=== PATIENT | male | born 1980 | race Caucasian/White ===

== ENCOUNTER 2019-09-16 14:15 | Emergency (ER) | payer MEDICAID ==
[~2019-09-16] VITALS: Ht 182.9 cm; Wt 138.2 kg
[2019-09-16] MEDS ORDERED: LIPI10TA PO (14:26)
[2019-09-16 14:58] LABS: BASO # 0.1 10^3/uL (0.0-0.2); BASO % 0.5 % (0.0-1.0); EOS # 0.3 10^3/uL (0.0-0.5); EOS % 1.8 % (0.0-3.0); HEMATOCRIT 49.6 % (42.0-52.0); HEMOGLOBIN 17.1 g/dl (13.5-17.5); LYMPH # 3.7 10^3/uL (1.5-5.0); LYMPH % 26.7 % (24.0-44.0); MEAN CORPUSCULAR HEMOGLOBIN 29.7 pg (27.0-33.0); MEAN CORPUSCULAR HGB CONC 34.5 g/dl (32.0-36.5); MEAN CORPUSCULAR VOLUME 86.3 fl (80.0-96.0); MONO # 1.1 10^3/uL (0.0-0.8); MONO % 7.7 % (0.0-5.0); NEUTROPHILS # 8.8 10^3/uL (1.5-8.5); NEUTROPHILS % 62.7 % (36.0-66.0); PLATELET COUNT, AUTOMATED 208 10^3/uL (150-450); RED BLOOD COUNT 5.75 10^6/uL (4.30-6.10)
[2019-09-16 15:32] LABS: BLOOD UREA NITROGEN 11 MG/DL (7-18); CALCIUM LEVEL 8.7 MG/DL (8.5-10.1); CARBON DIOXIDE LEVEL 27 MEQ/L (21-32); CHLORIDE LEVEL 102 MEQ/L (98-107); CK-MB VALUE MASS 2.1 NG/ML (<3.6); CPK CREATINE PHOSPHOKINASE 172 U/L (39-308); CREATININE FOR GFR 1.04 MG/DL (0.70-1.30); FREE T4 0.98 NG/DL (0.76-1.46); GLOMERULAR FILTRATION RATE > 60.0 (>60); GLUCOSE, FASTING 78 MG/DL (70-100); MB/CK RELATIVE INDEX 1.22 (< OR =4); POTASSIUM SERUM 4.2 MEQ/L (3.5-5.1); SODIUM LEVEL 137 MEQ/L (136-145); TROPONIN I < 0.02 NG/ML (< 0.10)
--- NOTE | 2019-09-16 15:37 | REP ---
Single view chest: 09/16/2019. Indication: Chest pain. Comparison: None. Findings: The lungs are clear. There is no pleural effusion or pneumothorax. The cardiac silhouette is unremarkable. Impression: No acute cardiopulmonary process. Electronically Signed by Frank Jennings DO 09/16/2019 03:29 P
[2019-09-16] MEDS ORDERED: ISOVUE-370 76% 100ML VIAL (Q9967) As Ordered ONE (16:29)
[2019-09-16 17:42] VITALS: BP 114/62
--- NOTE | 2019-09-16 18:24 | REP ---
CT pulmonary angiogram: With IV contrast. History: Chest pain. Shortness of breath. Rule out pulmonary embolus. Comparison studies: Comparison is made with today's chest x-ray Contrast dose: 75 ML of Isovue [address] technique: Helical scanning is acquired and overlapping 1.5 mm and contiguous 3 mm axial images are reformatted. In addition, maximum intensity projection and multiplanar re-formation images are generated in sagittal and coronal imaging projections. CT pulmonary angiographic findings: There is good opacification of the pulmonary arterial tree. There is no CT evidence of pulmonary embolus. No vessel cutoff or filling defect is seen on maximal intensity projection images. The thoracic aorta is normal in contour and course and homogeneous in contrast enhancement. No aneurysm or dissection is seen. Granulomatous calcifications are seen scattered about the spleen as well as in subcarinal and right hilar lymph node residuals. There are granulomatous calcifications in the right lower lobe of the lung. Some of these granulomatous calcifications in the right lower lobe appear to be within a dilated central bronchus. Question broncholith. There is volume loss and subsegmental atelectasis in the superior segment of the right lower lobe related to this. No pulmonary mass or significant pulmonary nodule is appreciated. No bony destructive lesion is appreciated. No adrenal lesion is seen. Visualized upper abdominal structures are otherwise unremarkable. Impression: No CT evidence of pulmonary embolus or aortic disease. There are granulomatous calcific residuals in the right lower lobe of the lung as well as in the right hilar and a right subcarinal lymph node residuals. There are two or three granulomatous calcifications which appear to reside within a dilated central bronchi. These may reflect broncholith. There is some volume loss in the superior segment of the right lower lobe at this level. Electronically Signed by Davion Foster MD 09/17/2019 08:23 A
--- NOTE | 2019-09-16 18:45 | ECGEPIP ---
[facility] - ED Test Date: 2019-09-16 Pat Name: MARIA A ROTH Department: Room: - Gender: Male Regional Engagement Consultant: RAISA : 1980 Requested By: BLAYNE Ray Order Number: [id number] Reading MD: Sana Valencia Measurements Intervals [place] Rate: 90 P: 29 FL: 162 QRS: -7 QRSD: 89 T: 12 QT: 361 QTc: 444 Interpretive Statements SINUS RHYTHM VOLTAGE CRITERIA FOR LVH NO PRIOR Electronically Signed on 09-16-2019 18:45:13 EST by Sana Valencia
== END 2019-09-16 17:51 | disposition home or self-care (01) ==
LOC: M ED 14:15
DX: R07.9 Chest pain, unspecified (principal); Z88.0 Allergy status to penicillin; Z88.6 Allergy status to analgesic agent
CPT/HCPCS: 71045; 71275; 80048; 82550; 82553; 84439; 84443; 85025; 93005; 93041; 94760; 99284; Q9967

== ENCOUNTER → 2019-09-17 | Outpatient (REF) | payer MEDICAID ==
[~2019-09-17] MED LIST: LIPI10TA PO
[2019-09-17 12:57] LABS: ALBUMIN 3.8 GM/DL (3.2-5.2); ALT/SGPT 46 U/L (12-78); BILIRUBIN,TOTAL 0.7 MG/DL (0.2-1.0); BLOOD UREA NITROGEN 16 MG/DL (7-18); CARBON DIOXIDE LEVEL 27 MEQ/L (21-32); CHLORIDE LEVEL 106 MEQ/L (98-107); CHOLESTEROL LEVEL 172 MG/DL (<200); CHOLESTEROL RISK RATIO 5.931 (<5); CREATININE FOR GFR 0.96 MG/DL (0.70-1.30); GLOMERULAR FILTRATION RATE > 60.0 (>60); GLUCOSE, FASTING 113 MG/DL (70-100); HDL CHOLESTEROL 29 MG/DL (>40); LDL CHOLESTEROL 108 MG/DL (<100); NON-HDL-C 143 MG/DL; POTASSIUM SERUM 4.3 MEQ/L (3.5-5.1); SODIUM LEVEL 139 MEQ/L (136-145); TOTAL PROTEIN 7.4 GM/DL (6.4-8.2); TRIGLYCERIDES LEVEL 176 MG/DL (<150)
== END ==
LOC: M LAB REF 12:01
PROVIDERS: ATTEND Nurse Practitioner Family
DX: R07.9 Chest pain, unspecified (principal); E78.5 Hyperlipidemia, unspecified

== ENCOUNTER → 2019-09-20 | Outpatient (REF) | payer MEDICAID ==
[2019-09-20 13:08] LABS: BASO # 0.1 10^3/uL (0.0-0.2); BASO % 0.8 % (0.0-1.0); EOS # 0.3 10^3/uL (0.0-0.5); EOS % 2.7 % (0.0-3.0); HEMATOCRIT 49.3 % (42.0-52.0); HEMOGLOBIN 16.7 g/dl (13.5-17.5); LYMPH # 3.6 10^3/uL (1.5-5.0); LYMPH % 33.9 % (24.0-44.0); MEAN CORPUSCULAR HEMOGLOBIN 29.5 pg (27.0-33.0); MEAN CORPUSCULAR HGB CONC 33.9 g/dl (32.0-36.5); MEAN CORPUSCULAR VOLUME 87.1 fl (80.0-96.0); MONO # 0.7 10^3/uL (0.0-0.8); MONO % 6.3 % (0.0-5.0); NEUTROPHILS # 5.9 10^3/uL (1.5-8.5); NEUTROPHILS % 55.6 % (36.0-66.0); PLATELET COUNT, AUTOMATED 192 10^3/uL (150-450); RED BLOOD COUNT 5.66 10^6/uL (4.30-6.10); WHITE BLOOD COUNT 10.6 10^3/uL (4.0-10.0)
[2019-09-20 13:22] LABS: ALBUMIN 3.8 GM/DL (3.2-5.2); ALT/SGPT 47 U/L (12-78); BILIRUBIN,TOTAL 0.6 MG/DL (0.2-1.0); BLOOD UREA NITROGEN 12 MG/DL (7-18); CALCIUM LEVEL 9.3 MG/DL (8.5-10.1); CARBON DIOXIDE LEVEL 30 MEQ/L (21-32); CHLORIDE LEVEL 103 MEQ/L (98-107); CHOLESTEROL LEVEL 205 MG/DL (<200); CHOLESTEROL RISK RATIO 7.321 (<5); CREATININE FOR GFR 1.14 MG/DL (0.70-1.30); FREE T4 1.03 NG/DL (0.76-1.46); GLOMERULAR FILTRATION RATE > 60.0 (>60); GLUCOSE, FASTING 95 MG/DL (70-100); HDL CHOLESTEROL 28 MG/DL (>40); LDL CHOLESTEROL 150 MG/DL (<100); NON-HDL-C 177 MG/DL; POTASSIUM SERUM 4.4 MEQ/L (3.5-5.1); SODIUM LEVEL 139 MEQ/L (136-145); TRIGLYCERIDES LEVEL 137 MG/DL (<150)
[2019-09-20 13:37] LABS: HEMOGLOBIN A1c 5.6 %
== END ==
LOC: M LAB REF 12:30
PROVIDERS: ATTEND Nurse Practitioner Family
DX: Z13.9 Encounter for screening, unspecified (principal); E78.5 Hyperlipidemia, unspecified; R07.9 Chest pain, unspecified

== ENCOUNTER → 2020-01-13 | Outpatient (CLI) | payer OTHER ==
--- NOTE | 2020-01-13 20:20 | REP ---
Clinical: Cough . Comparison: 09/16/2019 . Technique: PA and lateral. Findings: The mediastinum and cardiac silhouette are normal. The lung rodriguez are clear and without acute consolidation, effusion, or pneumothorax. The skeletal structures are intact and normal. Impression: 1. No acute cardiopulmonary process. Electronically Signed by Roger Perez MD 01/13/2020 08:11 P
== END ==
LOC: M WUC 11:41
PROVIDERS: ATTEND Nurse Practitioner Family
DX: R05 Cough (principal)

== ENCOUNTER → 2020-04-25 | Outpatient (CLI) | payer OTHER ==
[~2020-04-25] MED LIST changes: +TIZA4CAP PO
== END ==
LOC: M LABSMTC 07:55
PROVIDERS: ATTEND Anesthesiology
DX: Z11.59 Encounter for screening for other viral diseases (principal); Z03.89 Encounter for observation for other suspected diseases and conditions ruled out
CPT/HCPCS: C9803; U0003

== ENCOUNTER 2020-04-28 06:05 | Day surgery (SDC) | payer OTHER ==
[~2020-04-28] VITALS: Ht 182.9 cm; Wt 136.1 kg
[~2020-04-28 06:05] MED LIST changes: +LIDOCAINE 1% MDV 20ML VIAL SQ PRN; +LR 1,000 ML IV ONE; +ceFAZolin SOD 2 GM in IV 1 EA IV ONE
[2020-04-28] MEDS ORDERED: dexameTHASONE 10MG/1ML VIAL PRES.FREE (J1100 PER 1MG) ONE (06:06)
[2020-04-28] MEDS ORDERED: LIDOCAINE 1% MDV 20ML VIAL ONE (06:06)
[2020-04-28] MEDS ORDERED: ROPIvacaine 0.5% 30ML INJECTION (J2795 PER 1MG) ONE (06:06)
[2020-04-28] MEDS ORDERED: MIDAZOLAM INJ 2MG/2ML VIAL (J2250 PER 1MG) As Ordered ONE ×2 (06:36→06:51)
[2020-04-28] MEDS ORDERED: fentaNYL 100 MCG/2 ML INJECTION (J3010) As Ordered ONE ×2 (06:36→06:52)
[2020-04-28] MEDS ORDERED: dexameTHASONE 4 MG/ML 1ML VIAL (J1100 PER 1MG) As Ordered ONE (06:53)
[2020-04-28] MEDS ORDERED: ONDANSETRON 4MG/2ML VIAL As Ordered ONE (06:53)
[2020-04-28] MEDS ORDERED: LIDOCAINE 2% 100MG/5ML SDV (FOR ANES.) As Ordered ONE (06:54)
[2020-04-28] MEDS ORDERED: EPINEPHrine 1MG/ML INJ 30ML MD-VIAL As Ordered ONE (07:05)
[2020-04-28] MEDS ORDERED: LIDOCAINE 1% MDV 20ML VIAL As Ordered ONE (07:05)
[2020-04-28] MEDS ORDERED: SCOPOLAMINE 1MG TRANSDERMAL PATCH TOP ONE (07:15)
[2020-04-28] MEDS ORDERED: fentaNYL 100 MCG/2 ML INJECTION (J3010) IV ONE (07:45)
[2020-04-28] MEDS ORDERED: MIDAZOLAM INJ 2MG/2ML VIAL (J2250 PER 1MG) IV ONE (07:45)
[2020-04-28] MEDS ORDERED: ROCURONIUM BROMIDE 50 MG/5 ML VIAL As Ordered ONE (08:06)
[2020-04-28] MEDS ORDERED: ePHEDrine SULFATE 25 MG/5 ML(5MG/ML) SYRINGE As Ordered ONE (08:37)
[2020-04-28] MEDS ORDERED: PHENYLephrine HCL 500 MCG/5 ML (100MCG/ML) SYRINGE (J2370) As Ordered ONE (08:37)
[2020-04-28] MEDS ORDERED: propofoL 200 MG/20 ML VIAL As Ordered ONE ×2 (09:00→09:43)
[2020-04-28] MEDS ORDERED: SUGAMMADEX SODIUM 500 MG/5 ML VIAL (BRIDION) As Ordered ONE (09:01)
[2020-04-28] MEDS ORDERED: oxyCODONE 5MG TAB PO PRN (10:15)
[2020-04-28] MEDS ORDERED: fentaNYL 100 MCG/2 ML INJECTION (J3010) IV PRN (10:15)
[2020-04-28] MEDS ORDERED: LR 1,000 ML IV SCH ×2 (10:15→10:30)
[2020-04-28] MEDS ORDERED: HYDROMORPHONE HCL 0.5 MG/ 0.5 ML SYRINGE (J1170 PER 1) IV PRN (10:15)
[2020-04-28] MEDS ORDERED: ONDANSETRON 4MG/2ML VIAL IV PRN (10:15)
[2020-04-28 12:20] VITALS: BP 123/83
--- NOTE | 2020-04-30 14:08 | RO ---
DATE OF SURGERY: 04/01/2020 PREOPERATIVE DIAGNOSES: 1. Left shoulder partial thickness rotator cuff tear. 2. Left shoulder acromioclavicular joint arthritis. 3. Left shoulder possible labral tear. 4. Left shoulder impingement. POSTOPERATIVE DIAGNOSES: 1. Left shoulder high-grade partial rotator cuff tear. 2. Left shoulder impingement. 3. Left shoulder acromioclavicular joint arthritis. 4. Right shoulder type 1 superior labral tear. 5. Left shoulder chondromalacia. PROCEDURE: 1. Left shoulder arthroscopic revision rotator cuff repair. 2. Left shoulder arthroscopic distal clavicle excision. 3. Left shoulder arthroscopic subacromial decompression including acromioplasty. 4. Left shoulder arthroscopic superior labral debridement and chondroplasty of the glenoid. SURGEON: Dr. Ryan Hugo E M ASSEMBLER: Sunitha Jack PA-C ANESTHESIA: General with preoperative nerve block. IV FLUIDS: Lactated Ringer's. ESTIMATED BLOOD LOSS: 5 mL. IMPLANTS: Arthrex 4.75 mm PEEK SwiveLock anchor times two. CLOSURE: Nylon. DESCRIPTION OF PROCEDURE: The patient was identified in the preoperative holding area and the left shoulder was marked by myself. He had an interscalene nerve block by anesthesia. He is brought to the operating room, placed supine on a well-padded OR table with a beanbag. General anesthesia was induced. Exam under anesthesia revealed 170 degrees of forward flexion, 80 of external rotation with his arm at 90, 90 of external rotation with his arm at his side. He had no increased anterior-posterior translation on load and shift test. He was placed into the right side down lateral decubitus position with an axillary roll and all bony prominences well padded. Bilateral Venodyne boots for deep venous thrombosis (DVT) prophylaxis. The left arm was placed into the Arthrex StaR sleeve lateral decubitus traction hernandez with 10 pounds of traction. He was carefully secured to the OR table. He received appropriate IV antibiotics within 1 hour of incision. Prior to incision, a time-out was performed per hospital protocol. Guera Jack was present for the entire procedure and participated in all essential portions of procedure. This included patient positioning and draping, holding the arthroscope, assisting with placement of anchors for the rotator cuff repair, assisting with retrieving sutures, rotating the arm to improve the angle for anchor insertion, and performed the wound closure, applied the dressing and sling. The left shoulder was insufflated with lactated Ringer's. Standard posterior viewing portal made with 11-blade. 30 degree arthroscope was introduced into the joint. Diagnostic arthroscopy carried out revealing primarily grade 1 chondromalacia of the humeral head and glenoid. There is one area of grade 2 centrally on the glenoid. The patient is RDS status post biceps tenodesis by another surgeon, so the biceps was absent. There was some degenerative fraying at the superior labrum. No other labral tearing appreciated. Posterior rotator cuff was intact. I anticipated seeing a tear of the subscapularis, however it appeared pristine. There is no lift off of the subscap doing the posterior lever push maneuver. The supraspinatus was then carefully inspected and a FiberWire suture from his original surgery was visualized just off the footprint. There was a what appeared to be a fairly high-grade partial articular tear right at the footprint. Cannula was placed through the rotator interval and the shaver was used to perform a superior labral debridement and a chondroplasty of the glenoid. I also performed debridement to the partial articular rotator cuff tear. The arthroscope was placed into the subacromial space where there was mild bursitis. Through a lateral working portal I probed the rotator cuff repair site from his index surgery and there was a high-grade bursal sided tear with loose sutures visible. This was a fairly medial tear about 2-3 cm medial to the footprint. Probing this with the switching stick the sutures were loose and I was easily able to penetrate into the joint. Cautery was then used to clear out the bursa and scar tissue. There was a spur on the acromion side of the acromioclavicular (AC) joints, so the bur was used to perform an acromioplasty. Next, attention was turned to the distal clavicle excision. At the AC joint, there was bone on bone contact. Through the anterior working portal the bur was used to remove approximately 7-8 mm of the distal clavicle. The scope was placed through the anterior portal to get a direct view and ensure no posterior-superior bone remained. Pituitary rongeur was used to remove a thin bony fragment in the superior capsule. Shoulder was irrigated and drained at this point. Now attention was turned to the revision rotator cuff repair. The open suture cutter was used to remove the majority of the FiberWire sutures from his first surgery. No anchors had been visible on his MRI or during surgery. I suspect he had biocomposite SwiveLocks. So after removing as much suture as possible, this was essentially the near full thickness tear right in the posterior supraspinatus. The shaver and cautery were then used to complete the tear. Articular cartilage was visualized and scar tissue was cleared out anterior and posterior along the medial footprint. Ring curette was then used to clear soft tissues including scar tissue off the tuberosity. However, I elected to leave the lateral footprint intact as there was a good 2 cm of healthy tendon still attached to bone and being of somewhat medial tear did not want to have a high tension repair. I then percutaneously placed a 4.75 mm PEEK SwiveLock anchor preloaded with tape just off articular surface. The tape sutures were passed at the far anterior and posterior portions of the tear with the scorpion. The eyelet stitches were passed through the midpoint of the tear. The knot pusher was then used to tie the eyelet stitches using a knot pusher and arthroscopic knot tying techniques with alternating half hitches. Next, all for limbs of suture were brought out through a modified lateral portal and when tensioning those sutures this nicely compressed the edges of the cuff tear. There was a good centimeter from the cartilage tuberosity junction lateral that had been scraped with the ring curette to allow for tendon to bone healing, so this was not just the soft tissue repair. All four limbs of suture were passed through a 4.75 mm PEEK SwiveLock anchor. The awl was used to create a socket far lateral. The anchor was docked, sutures appropriately tensioned. The anchor was malleted and then inserted by hand with excellent fixation. This provided excellent compression at the tear site from anterior to posterior. There were no dog ears. There was no lift off for buckling. The shoulder was gently rotated. The shoulder was irrigated and drained. Portals closed with nylon suture. Bulky sterile dressing applied. He was then placed into a R-2 sling and at the time of dictation he is about to be extubated and transferred to the postanesthesia care unit (PACU). Postoperative course will consist of use of his R-2 sling for total of 6 weeks. Physical therapy will start at 2 weeks postop. He is only allowed to have passive range of motion until he is 8 weeks out. At 8 weeks they can start active-assisted motion, at 12 weeks can start active motion and at 4 months can start strengthening.
== END 2020-04-28 12:45 | disposition home or self-care (01) ==
LOC: M SDC 06:05
PROVIDERS: ATTEND Orthopaedic Surgery
DX: M19.012 Primary osteoarthritis, left shoulder (principal); M75.112 Incomplete rotator cuff tear or rupture of left shoulder, not specified as traumatic; M75.42 Impingement syndrome of left shoulder; M94.212 Chondromalacia, left shoulder; Z79.899 Other long term (current) drug therapy; Z88.0 Allergy status to penicillin; Z88.5 Allergy status to narcotic agent
CPT/HCPCS: 29823; 29824; 29826; 29827; 64415; C1713; J0690; J1100; J2250; J2370; J2405; J2795; J3010

== ENCOUNTER → 2021-08-23 | Outpatient (REF) ==
[~2021-08-23] MED LIST changes: -LIDOCAINE 1% MDV 20ML VIAL SQ PRN; -LR 1,000 ML IV ONE; -ceFAZolin SOD 2 GM in IV 1 EA IV ONE
== END ==
LOC: M LAB 09:46
PROVIDERS: ATTEND Nurse Practitioner Adult Health
DX: Z02.89 Encounter for other administrative examinations (principal)

== ENCOUNTER → 2021-09-15 | Outpatient (CLI) | payer OTHER | LOC: M PAIN 08:30 | PROVIDERS: ATTEND Anesthesiology | DX: M25.512 Pain in left shoulder (principal); M79.2 Neuralgia and neuritis, unspecified; Z88.0 Allergy status to penicillin; Z88.5 Allergy status to narcotic agent; Z79.899 Other long term (current) drug therapy ==

== ENCOUNTER → 2021-09-26 | Outpatient (REF) ==
[2021-09-26 16:38] LABS: RSV AMPLIFICATION NEGATIVE (NEGATIVE)
== END ==
LOC: M EMP 15:23
PROVIDERS: ATTEND Family Medicine
DX: Z11.52 Encounter for screening for COVID-19 (principal)

== ENCOUNTER → 2021-09-27 | Outpatient (REF) | LOC: M EMP 08:26 | PROVIDERS: ATTEND Family Medicine | DX: Z53.20 Procedure and treatment not carried out because of patient's decision for unspecified reasons (principal) ==

== ENCOUNTER → 2021-09-29 | Outpatient (REF) | LOC: M LABSMTC 10:26 | PROVIDERS: ATTEND Family Medicine | DX: Z20.822 Contact with and (suspected) exposure to COVID-19 (principal) ==

== ENCOUNTER → 2023-01-05 | Outpatient (REF) | payer OTHER, MEDICAID ==
[2023-01-05 18:33] LABS: HEMATOCRIT 47.4 % (42.0-52.0); HEMOGLOBIN 16.3 g/dl (13.5-17.5); MEAN CORPUSCULAR HEMOGLOBIN 29.8 pg (27.0-33.0); MEAN CORPUSCULAR HGB CONC 34.4 g/dl (32.0-36.5); MEAN CORPUSCULAR VOLUME 86.7 fl (80.0-96.0); PLATELET COUNT, AUTOMATED 240 10^3/uL (150-450); RED BLOOD COUNT 5.47 10^6/uL (4.30-6.10); WHITE BLOOD COUNT 10.3 10^3/uL (4.0-10.0)
[2023-01-05 18:57] LABS: ALBUMIN 3.6 G/DL (3.2-5.2); ALKALINE PHOSPHATASE 114 U/L (46-116); ALT/SGPT 49 U/L (7.0-40); AST/SGOT 34 U/L (<34); BILIRUBIN,TOTAL 0.6 MG/DL (0.3-1.2); BLOOD UREA NITROGEN 14 MG/DL (9-23); CALCIUM LEVEL 8.5 MG/DL (8.5-10.1); CARBON DIOXIDE LEVEL 26 MMOL/L (20-31); CHLORIDE LEVEL 103 MMOL/L (98-107); CHOLESTEROL LEVEL 178 MG/DL (<200); CHOLESTEROL RISK RATIO 7.63 (<5); CREATININE FOR GFR 0.98 MG/DL (0.70-1.30); GLOMERULAR FILTRATION RATE > 60.0 (>60); GLUCOSE, FASTING 87 MG/DL (60-100); HDL CHOLESTEROL 23.3 MG/DL (>40); LDL CHOLESTEROL 128.9 MG/DL (<100); NON-HDL-C 154.7 MG/DL; POTASSIUM SERUM 4.9 MMOL/L (3.5-5.1); SODIUM LEVEL 137 MMOL/L (136-145); THYROID STIMULATING HORMONE 1.943 uIU/ML (0.55-4.78); TOTAL 25(OH) VITAMIN D 17.1 NG/ML (20.0-100.0); TRIGLYCERIDES LEVEL 129 MG/DL (<150)
[2023-01-05 19:54] LABS: HEMOGLOBIN A1c 5.8 % (4.0-6.0)
== END ==
LOC: M LAB REF 16:16
PROVIDERS: ATTEND Physician Assistant
DX: R63.5 Abnormal weight gain (principal); E78.5 Hyperlipidemia, unspecified; Z51.81 Encounter for therapeutic drug level monitoring; E55.9 Vitamin D deficiency, unspecified; F31.9 Bipolar disorder, unspecified

== ENCOUNTER → 2023-04-10 | Outpatient (REF) | payer OTHER | LOC: M LAB REF 16:27 | PROVIDERS: ATTEND Physician Assistant | DX: J02.9 Acute pharyngitis, unspecified (principal); R50.9 Fever, unspecified ==

== ENCOUNTER → 2023-08-25 | Outpatient (REF) | payer MEDICARE, OTHER ==
[2023-08-25 14:03] LABS: HEMOGLOBIN A1c 5.2 % (4.0-6.0)
== END ==
LOC: M LAB REF 12:27
PROVIDERS: ATTEND Nurse Practitioner Family
DX: R73.03 Prediabetes (principal)

== ENCOUNTER → 2024-01-25 | Outpatient (REF) | payer MEDICARE, OTHER ==
[2024-01-25 13:44] LABS: HEMATOCRIT 49.8 % (42.0-52.0); HEMOGLOBIN 16.8 g/dl (13.5-17.5); MEAN CORPUSCULAR HEMOGLOBIN 29.5 pg (27.0-33.0); MEAN CORPUSCULAR HGB CONC 33.7 g/dl (32.0-36.5); MEAN CORPUSCULAR VOLUME 87.5 fl (80.0-96.0); PLATELET COUNT, AUTOMATED 227 10^3/uL (150-450); RED BLOOD COUNT 5.69 10^6/uL (4.30-6.10); WHITE BLOOD COUNT 11.6 10^3/uL (4.0-10.0)
[2024-01-25 13:58] LABS: HEMOGLOBIN A1c 5.6 % (4.0-6.0)
[2024-01-25 14:12] LABS: TOTAL 25(OH) VITAMIN D 20.7 NG/ML (20.0-100.0)
[2024-01-25 14:14] LABS: ALBUMIN 3.7 G/DL (3.2-5.2); ALKALINE PHOSPHATASE 119 U/L (46-116); ALT/SGPT 48 U/L (7.0-40); AST/SGOT 24 U/L (<34); BILIRUBIN,TOTAL 0.4 MG/DL (0.3-1.2); BLOOD UREA NITROGEN 15 MG/DL (9-23); CALCIUM LEVEL 8.7 MG/DL (8.5-10.1); CARBON DIOXIDE LEVEL 30 MMOL/L (20-31); CHLORIDE LEVEL 104 MMOL/L (98-107); CHOLESTEROL LEVEL 179 MG/DL (<200); CHOLESTEROL RISK RATIO 7.71 (<5); CREATININE FOR GFR 1.03 MG/DL (0.70-1.30); GLOMERULAR FILTRATION RATE > 60.0 (>60); GLUCOSE, FASTING 78 MG/DL (60-100); HDL CHOLESTEROL 23.2 MG/DL (>40); LDL CHOLESTEROL 130.6 MG/DL (<100); NON-HDL-C 155.8 MG/DL; POTASSIUM SERUM 4.7 MMOL/L (3.5-5.1); SODIUM LEVEL 139 MMOL/L (136-145); TOTAL PROTEIN 7.1 G/DL (5.7-8.2); TRIGLYCERIDES LEVEL 126 MG/DL (<150)
== END ==
LOC: M LAB REF 13:08
PROVIDERS: ATTEND Physician Assistant
DX: E55.9 Vitamin D deficiency, unspecified (principal); E78.5 Hyperlipidemia, unspecified; R73.03 Prediabetes

== ENCOUNTER → 2024-03-04 | Outpatient (CLI) | payer MEDICARE, MEDICAID | LOC: M RAD 08:03 | PROVIDERS: ATTEND Physician Assistant | DX: E78.5 Hyperlipidemia, unspecified (principal) ==

== ENCOUNTER → 2024-12-30 | Outpatient (REF) | payer MEDICARE, MEDICAID ==
[2024-12-30 15:09] LABS: ALBUMIN 3.7 G/DL (3.2-5.2); ALKALINE PHOSPHATASE 130 U/L (40-129); ALT/SGPT 45 U/L (7.0-40); AST/SGOT 25 U/L (<34); BILIRUBIN,TOTAL 0.5 MG/DL (0.3-1.2); BLOOD UREA NITROGEN 12 MG/DL (9-23); CALCIUM LEVEL 8.8 MG/DL (8.5-10.1); CARBON DIOXIDE LEVEL 30 MMOL/L (20-31); CHLORIDE LEVEL 105 MMOL/L (98-107); CHOLESTEROL LEVEL 202 MG/DL (<200); CHOLESTEROL RISK RATIO 7.82 (<5); CREATININE FOR GFR 1.04 MG/DL (0.70-1.30); GLOMERULAR FILTRATION RATE > 60.0 (>60); GLUCOSE, FASTING 91 MG/DL (60-100); HDL CHOLESTEROL 25.8 MG/DL (>40); LDL CHOLESTEROL 154.6 MG/DL (<100); NON-HDL-C 176.2 MG/DL; POTASSIUM SERUM 4.6 MMOL/L (3.5-5.1); SODIUM LEVEL 140 MMOL/L (136-145); TOTAL PROTEIN 7.6 G/DL (5.7-8.2); TRIGLYCERIDES LEVEL 108 MG/DL (<150)
[2024-12-30 15:10] LABS: THYROID STIMULATING HORMONE 1.483 uIU/ML (0.55-4.78); TOTAL 25(OH) VITAMIN D 22.1 NG/ML (20.0-100.0)
[2024-12-30 15:27] LABS: HEMATOCRIT 49.2 % (42.0-52.0); HEMOGLOBIN 16.6 g/dl (13.5-17.5); MEAN CORPUSCULAR HEMOGLOBIN 29.4 pg (27.0-33.0); MEAN CORPUSCULAR HGB CONC 33.7 g/dl (32.0-36.5); MEAN CORPUSCULAR VOLUME 87.1 fl (80.0-96.0); PLATELET COUNT, AUTOMATED 234 10^3/uL (150-450); RED BLOOD COUNT 5.65 10^6/uL (4.30-6.10); WHITE BLOOD COUNT 11.3 10^3/uL (4.0-10.0)
== END ==
LOC: M LAB REF 12:14
PROVIDERS: ATTEND Student in an Organized Health Care Education/Training Program
DX: E66.01 Morbid (severe) obesity due to excess calories (principal); Z68.41 Body mass index [BMI] 40.0-44.9, adult; Z79.899 Other long term (current) drug therapy

== ENCOUNTER → 2025-10-20 | Outpatient (REF) | payer MEDICARE, MEDICAID ==
[~2025-10-20] MED LIST changes: +ATOR40TA75 PO; +EZET10TA57 PO
[2025-10-20 13:47] LABS: CHOLESTEROL LEVEL 150.0 MG/DL (<200); CHOLESTEROL RISK RATIO 6.88 (<5); LDL CHOLESTEROL 107.4 MG/DL (<100); NON-HDL-C 128.2 MG/DL; TRIGLYCERIDES LEVEL 104.0 MG/DL (<150)
== END ==
LOC: M LAB REF 11:56
PROVIDERS: ATTEND Student in an Organized Health Care Education/Training Program
DX: E78.5 Hyperlipidemia, unspecified (principal)